=== PATIENT | male | born 1930 | race Caucasian/White ===

== ENCOUNTER 2018-11-29 15:27 | Inpatient (IN) | payer OTHER ==
[~2018-11-29] VITALS: Ht 165.1 cm; Wt 86.2 kg
[2018-11-29 15:38] VITALS: BP 120/66
[2018-11-29] MEDS ORDERED: SIMVASTATIN40 MG PO (15:40)
[2018-11-29] MEDS ORDERED: ASPIR 8181 MG PO (15:41)
[2018-11-29 16:40] LABS: BE(vivo) 3.3 mmol/L (-2 to +3); PO2 57.8 mmHg (80.0-100.0); pH 7.469 (7.360-7.450); sO2 91.7 % (92.0-98.0)
[2018-11-29 17:07] LABS: HEMATOCRIT 45.9 % (42.0-52.0); HEMOGLOBIN 15.5 gm/dL (14.0-18.0); MCH 29.7 pg (26.0-34.0); MCHC 33.8 g/dL (28.0-37.0); PLATELET COUNT 204 thou/uL (150-400); RBC 5.22 mil/uL (4.50-6.00); RDW 14.9 % (10.5-14.5)
[2018-11-29 17:23] LABS: ANION GAP 9 mmol/L (7-16); BUN 17 mg/dL (7-18); CALCIUM 8.8 mg/dL (8.5-10.1); CHLORIDE 105 mmol/L (98-107); CO2 29 mmol/L (21-32); CREATININE 1.1 mg/dL (0.7-1.3); GLUCOSE 100 mg/dL (74-106); POTASSIUM 3.9 mmol/L (3.5-5.1); SODIUM 143 mmol/L (136-145)
[2018-11-29 17:32] LABS: ALBUMIN 3.2 g/dL (3.4-5.0); SGOT 28 U/L (15-37); SGPT 21 U/L (30-65); TOTAL BILIRUBIN 0.8 mg/dL (<0.1-1.0); TOTAL PROTEIN 7.2 g/dL (6.4-8.2); TROPONIN-I <0.06 ng/mL (<0.06)
[2018-11-29 18:10] VITALS: BP 120/66
[2018-11-29 18:37] VITALS: BP 137/83
--- NOTE | 2018-11-29 18:40 | EKG ---
[place] [address] [facility] [employer] 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 : 1930 Requested By: Aileen Gamboa Order Number: [id number] MD: Bryan Schwartz Measurements Intervals [place] Rate: 91 P: -22 SC: 178 QRS: -44 QRSD: 110 T: 90 QT: 367 QTc: 452 Interpretive Statements Sinus rhythm Borderline left atrial enlargement Poor R-wave progression transition LVH with IVCD Baseline wander in lead(s) V6 No previous ECG available for comparison Electronically Signed On 11-29-2018 18:39:58 ACCOUNT SUPPORT MANAGER by Bryan Schwartz [email or web address] ��������������������������������������������� <ELECTRONICALLY SIGNED> ���������������������������������������� By: Bryan Schwartz MD ��������������������������������������������� 11/29/18 1839 21 21 Bryan Schwartz MD /EPI
[2018-11-29 20:30] LABS: TSH 0.949 uIU/mL (0.358-3.740)
[2018-11-29 20:47] VITALS: BP 144/76
[2018-11-30 04:51] VITALS: BP 116/56
[2018-11-30 08:05] VITALS: BP 108/60
[2018-11-30 14:40] VITALS: BP 112/70
[2018-11-30 19:23] VITALS: BP 115/59
[2018-12-01 04:14] VITALS: BP 101/58
[2018-12-01 07:30] VITALS: BP 111/67
[2018-12-01 13:38] VITALS: BP 122/58
[2018-12-01 19:55] VITALS: BP 121/67
[2018-12-02 08:05] VITALS: BP 122/72
[2018-12-02] MEDS ORDERED: CEFUROXIME250 MG PO (09:24)
[2018-12-02 09:45] VITALS: BP 121/67
[2018-12-02 18:42] VITALS: BP 124/7
[2018-12-02 21:46] VITALS: BP 124/74
[2018-12-02 22:00] VITALS: BP 124/74
[2018-12-03 07:30] VITALS: BP 131/76
== END 2018-12-03 17:25 | DRG 871 ==
LOC: ER 15:27 → EROBS 17:55 → SICU 17:55 → 4W 18:50 → SICU 12-01 18:13
PROVIDERS: Physician Assistant; ADMIT Hospitalist
DX: A41.9 Sepsis, unspecified organism (principal); J18.9 Pneumonia, unspecified organism; J44.0 Chronic obstructive pulmonary disease with (acute) lower respiratory infection; R09.02 Hypoxemia; E78.5 Hyperlipidemia, unspecified; E03.9 Hypothyroidism, unspecified; S70.02XA Contusion of left hip, initial encounter; W00.0XXA Fall on same level due to ice and snow, initial encounter; Y93.89 Activity, other specified; Y92.480 Sidewalk as the place of occurrence of the external cause; Y99.8 Other external cause status; Z99.81 Dependence on supplemental oxygen; Z87.891 Personal history of nicotine dependence; Z79.82 Long term (current) use of aspirin; Z79.899 Other long term (current) drug therapy; Z28.21 Immunization not carried out because of patient refusal
CPT/HCPCS: 10045; 15002